=== PATIENT | female | born 1935 | race Caucasian/White ===

== ENCOUNTER 2018-01-26 14:30 | Inpatient (IN) ==
[2018-01-26] MEDS ORDERED: methylPREDNISolone SOD SUC 125 MG/2 ML VIAL IV STA (15:02)
[2018-01-26 15:35] LABS: Basophils % 0.3 % (0.0-0.8); Eosinophils # 0.1 10*3/uL (0.0-0.87); Eosinophils % 0.9 % (0.00-10.9); Hematocrit 40.5 VOL% (35.7-47.0); Hemoglobin 13.4 GM/DL (12.0-16.0); Immature Granulocytes % 0.4 %; Immature Granulocytes Absolute 0.04 #; Lymphocytes % 9.9 % (21.3-54.2); Mean Corpuscular HGB Conc 33.1 GM/DL (32-36); Mean Corpuscular Hemoglobin 31 PG (27-34); Mean Corpuscular Volume 94.6 FL (87-102); Mean Platelet Volume 9.6 FL (9.6-12.0); Monocytes # 0.9 10*3/uL (0.11-0.8); Monocytes % 9.3 % (1.7-12.7); Neutrophils # 7.9 10*3/uL (1.4-7.4); Neutrophils % 79.2 % (38.7-73.9); Platelet Count 286 T/CUMM (130-400); Red Blood Count 4.28 MC/CUMM (3.8-5.5); Red Cell Distribution Width 13.2 % (9.3-17.3)
[2018-01-26 15:49] LABS: Alanine Aminotransferase 44 U/L (13-56); Albumin 2.4 G/DL (3.4-5.0); Alkaline Phosphatase 172 U/L (45-117); Aspartate Amino Transferase 39 U/L (0-37); Bilirubin,Total < 0.39 MG/DL (0.2-1.0); Blood Urea Nitrogen 25 MG/DL (7-18); Calcium 8.9 MG/DL (8.5-10.1); Glucose 266 MG/DL (74-106); Osmolality,Calculated 293.3 MOS/KG (273-304); Potassium 3.9 MMOL/L (3.5-5.1); Sodium 141 MMOL/L (136-145); Total Protein 5.8 G/DL (6.4-8.3); Troponin I Only < 0.015 NG/ML (0.00-0.045)
[2018-01-26 15:51] LABS: INR 0.9; PT Patient Result 9.9 SECS; Partial Thromboplastin Time 27.6 SECS (0-40)
[2018-01-26] MEDS ORDERED: ACETAMINOPHEN 325 MG TABLET PO PRN (17:21)
[2018-01-26] MEDS ORDERED: ONDANSETRON 4 MG/2 ML VIAL IV PRN (17:21)
[2018-01-26] MEDS ORDERED: NIFEdipine 10 MG CAPSULE PO PRN (17:34)
[2018-01-26] MEDS: methylPREDNISolone SOD SUC 125 MG/2 ML VIAL IV SCH (18:00)
[2018-01-26] MEDS: MEROPENEM 1,000 MG in SODIUM CHLORIDE 0.9% 100 ML IV SCH (18:20)
[2018-01-26] MEDS: ALBUTEROL/IPRATROPIUM 3 ML NEB RESP TX SCH ×2 (19:02→23:11)
[2018-01-26] MEDS: CIPROFLOXACIN 500 MG TABLET PO SCH (20:27)
[2018-01-26] MEDS: ZALEPLON 5 MG CAPSULE PO SCH (20:27)
[2018-01-26 20:41] LABS: Apearance,Urine CLOUDY (Clear); Bilirubin,Urine Negative (Negative); Blood, Urine Large mg/dL (Negative); Glucose,Urine (UA) 50 mg/dL (Negative); Ketones,Urine Negative (Negative); Mucus,Urine Occasional /LPF (Occasional); Nitrite,Urine Negative (Negative); Protein,Urine 100 MG/DL; RBC,Urine 3157 /HPF (0-4); Renal Epithelial Cells,Urine Occasional /HPF (<1); Squamous Epithelial Cell,Urine Occasional /HPF (0-10); Urine Color Amber (Yellow); WBC,Urine 69 /HPF (0-6)
[2018-01-27] MEDS: methylPREDNISolone SOD SUC 125 MG/2 ML VIAL IV SCH ×3 (01:00→17:15)
[2018-01-27] MEDS: ALBUTEROL/IPRATROPIUM 3 ML NEB RESP TX SCH ×6 (02:00→23:43)
[2018-01-27] MEDS: MEROPENEM 1,000 MG in SODIUM CHLORIDE 0.9% 100 ML IV SCH ×2 (05:30→17:18)
[2018-01-27 05:31] LABS: Basophils % 0.1 % (0.0-0.8); Hematocrit 35.9 VOL% (35.7-47.0); Immature Granulocytes % 0.6 %; Immature Granulocytes Absolute 0.05 #; Lymphocytes # 0.3 10*3/uL (1.4-4.0); Lymphocytes % 3.6 % (21.3-54.2); Mean Corpuscular HGB Conc 33.4 GM/DL (32-36); Mean Corpuscular Hemoglobin 31 PG (27-34); Mean Platelet Volume 9.5 FL (9.6-12.0); Monocytes # 0.1 10*3/uL (0.11-0.8); Monocytes % 1.2 % (1.7-12.7); Neutrophils # 8.1 10*3/uL (1.4-7.4); Neutrophils % 94.5 % (38.7-73.9); Platelet Count 263 T/CUMM (130-400); Red Blood Count 3.86 MC/CUMM (3.8-5.5); White Blood Count 8.6 T/CUMM (4-12)
[2018-01-27 05:47] LABS: Calcium 8.4 MG/DL (8.5-10.1); Osmolality,Calculated 294.8 MOS/KG (273-304); Risk Ratio 2.08
[2018-01-27 06:04] LABS: Band Neutrophils 1 % (0-10); Hypochromasia 1+; Lymphocytes 2 % (20-55); Platelet Estimate Adequate; Segmented Neutrophils 96 % (50-85); Total Cells Counted 100
[2018-01-27] MEDS ORDERED: UMECLIDINIUM BRM PO SCH (09:00)
[2018-01-27] MEDS ORDERED: VILANTEROL TR PO SCH (09:00)
[2018-01-27] MEDS: ASPIRIN EC 81 MG TABLET PO SCH (09:43)
[2018-01-27] MEDS: hydroCHLOROthiazide 25 MG TABLET PO SCH (09:43)
[2018-01-27] MEDS: DILTIAZEM CD 120 MG CAPSULE PO SCH (09:43)
[2018-01-27] MEDS: DULoxetine 30 MG CAPSULE PO SCH (09:44)
[2018-01-27] MEDS: CIPROFLOXACIN 500 MG TABLET PO SCH ×2 (09:44→20:46)
[2018-01-27] MEDS: amLODIPine 5 MG TABLET PO SCH (09:44)
[2018-01-27] MEDS: PANTOPRAZOLE 40 MG TABLET PO SCH (09:44)
[2018-01-27] MEDS: ATORVASTATIN 80 MG TABLET PO SCH (09:44)
[2018-01-27] MEDS: SOTALOL 80 MG TABLET PO SCH ×2 (10:39→20:46)
[2018-01-27] MEDS: ZALEPLON 5 MG CAPSULE PO SCH (20:46)
[2018-01-28] MEDS: methylPREDNISolone SOD SUC 125 MG/2 ML VIAL IV SCH (01:22)
[2018-01-28] MEDS: ALBUTEROL/IPRATROPIUM 3 ML NEB RESP TX SCH ×6 (03:22→23:45)
[2018-01-28] MEDS: MEROPENEM 1,000 MG in SODIUM CHLORIDE 0.9% 100 ML IV SCH ×2 (05:16→18:22)
[2018-01-28 06:01] LABS: Basophils % 0.1 % (0.0-0.8); Hematocrit 34.4 VOL% (35.7-47.0); Hemoglobin 11.6 GM/DL (12.0-16.0); Immature Granulocytes % 1.2 %; Immature Granulocytes Absolute 0.26 #; Lymphocytes # 0.7 10*3/uL (1.4-4.0); Lymphocytes % 3.3 % (21.3-54.2); Mean Corpuscular HGB Conc 33.7 GM/DL (32-36); Mean Corpuscular Hemoglobin 31 PG (27-34); Mean Corpuscular Volume 91.2 FL (87-102); Mean Platelet Volume 9.4 FL (9.6-12.0); Monocytes # 0.5 10*3/uL (0.11-0.8); Monocytes % 2.2 % (1.7-12.7); Neutrophils # 20.2 10*3/uL (1.4-7.4); Neutrophils % 93.2 % (38.7-73.9); Platelet Count 294 T/CUMM (130-400); Red Blood Count 3.77 MC/CUMM (3.8-5.5); Red Cell Distribution Width 12.8 % (9.3-17.3); White Blood Count 21.7 T/CUMM (4-12)
[2018-01-28 06:22] LABS: Calcium 8.7 MG/DL (8.5-10.1); Osmolality,Calculated 287.3 MOS/KG (273-304)
[2018-01-28 06:30] LABS: Anisocytosis Slight; Microcytosis Slight; Platelet Estimate Normal
[2018-01-28 06:31] LABS: Hypochromasia Slight
[2018-01-28 06:45] LABS: Lymphocytes 5 % (20-55); Segmented Neutrophils 93 % (50-85)
[2018-01-28 08:00] LABS: Total Cells Counted 100
[2018-01-28] MEDS: SOTALOL 80 MG TABLET PO SCH ×2 (10:13→21:00)
[2018-01-28] MEDS: hydroCHLOROthiazide 25 MG TABLET PO SCH (10:14)
[2018-01-28] MEDS: ATORVASTATIN 80 MG TABLET PO SCH (10:15)
[2018-01-28] MEDS: PANTOPRAZOLE 40 MG TABLET PO SCH (10:15)
[2018-01-28] MEDS: DILTIAZEM CD 120 MG CAPSULE PO SCH (10:15)
[2018-01-28] MEDS: CIPROFLOXACIN 500 MG TABLET PO SCH ×2 (10:15→21:00)
[2018-01-28] MEDS: DULoxetine 30 MG CAPSULE PO SCH (10:15)
[2018-01-28] MEDS: amLODIPine 5 MG TABLET PO SCH (10:16)
[2018-01-28] MEDS: methylPREDNISolone SOD SUC 40 MG/1 ML VIAL IV SCH ×2 (10:18→21:01)
[2018-01-28 14:34] LABS: AFP Tumor 2.8 NG/ML (0-8); Carcinoembryonic Antigen 5.6 NG/ML (0.0-5.0)
[2018-01-28 15:32] LABS: Cancer Antigen 19-9 794.9 U/ML (0-37)
[2018-01-28] MEDS: ZALEPLON 5 MG CAPSULE PO SCH (21:01)
[2018-01-29] MEDS: ALBUTEROL/IPRATROPIUM 3 ML NEB RESP TX SCH ×6 (03:50→22:59)
[2018-01-29] MEDS: MEROPENEM 1,000 MG in SODIUM CHLORIDE 0.9% 100 ML IV SCH ×3 (05:15→20:41)
[2018-01-29] MEDS: PANTOPRAZOLE 40 MG TABLET PO SCH (11:41)
[2018-01-29] MEDS: ATORVASTATIN 80 MG TABLET PO SCH (11:41)
[2018-01-29] MEDS: DILTIAZEM CD 120 MG CAPSULE PO SCH (11:41)
[2018-01-29] MEDS: DULoxetine 30 MG CAPSULE PO SCH (11:44)
[2018-01-29] MEDS: SOTALOL 80 MG TABLET PO SCH ×2 (11:44→20:42)
[2018-01-29] MEDS: CIPROFLOXACIN 500 MG TABLET PO SCH ×2 (11:44→20:42)
[2018-01-29] MEDS: amLODIPine 5 MG TABLET PO SCH (11:44)
[2018-01-29] MEDS: hydroCHLOROthiazide 25 MG TABLET PO SCH (11:44)
[2018-01-29] MEDS: methylPREDNISolone SOD SUC 40 MG/1 ML VIAL IV SCH ×2 (11:49→21:17)
[2018-01-29] MEDS: ZALEPLON 5 MG CAPSULE PO SCH (20:41)
[2018-01-29] MEDS ORDERED: MEROPENEM 1,000 MG in SODIUM CHLORIDE 0.9% 100 ML IV SCH (21:00)
[2018-01-30] MEDS: ALBUTEROL/IPRATROPIUM 3 ML NEB RESP TX SCH ×5 (03:18→19:36)
[2018-01-30 04:15] LABS: Hematocrit 39.5 VOL% (35.7-47.0); Hemoglobin 13.4 GM/DL (12.0-16.0); Immature Granulocytes Absolute 0.13 #; Lymphocytes # 0.5 10*3/uL (1.4-4.0); Mean Corpuscular HGB Conc 33.9 GM/DL (32-36); Mean Corpuscular Hemoglobin 31 PG (27-34); Mean Platelet Volume 8.9 FL (9.6-12.0); Monocytes # 0.5 10*3/uL (0.11-0.8); Monocytes % 3.7 % (1.7-12.7); Neutrophils # 11.8 10*3/uL (1.4-7.4); Neutrophils % 91.3 % (38.7-73.9); Platelet Count 332 T/CUMM (130-400); Red Blood Count 4.34 MC/CUMM (3.8-5.5); Red Cell Distribution Width 12.7 % (9.3-17.3); White Blood Count 12.9 T/CUMM (4-12)
[2018-01-30 04:29] LABS: Calcium 8.7 MG/DL (8.5-10.1); Osmolality,Calculated 285.4 MOS/KG (273-304)
[2018-01-30 05:10] LABS: Hypochromasia 1+; Lymphocytes 8 % (20-55); Platelet Estimate Adequate; Segmented Neutrophils 89 % (50-85); Total Cells Counted 100
[2018-01-30 05:11] LABS: Microcytosis Slight
[2018-01-30] MEDS: methylPREDNISolone SOD SUC 40 MG/1 ML VIAL IV SCH ×3 (08:49→21:37)
[2018-01-30] MEDS: MEROPENEM 1,000 MG in SODIUM CHLORIDE 0.9% 100 ML IV SCH ×2 (08:49→19:50)
[2018-01-30] MEDS: ASPIRIN EC 81 MG TABLET PO SCH (08:50)
[2018-01-30] MEDS: PANTOPRAZOLE 40 MG TABLET PO SCH (08:50)
[2018-01-30] MEDS: DILTIAZEM CD 120 MG CAPSULE PO SCH (08:50)
[2018-01-30] MEDS: SOTALOL 80 MG TABLET PO SCH ×2 (08:50→21:00)
[2018-01-30] MEDS: hydroCHLOROthiazide 25 MG TABLET PO SCH (08:50)
[2018-01-30] MEDS: CIPROFLOXACIN 500 MG TABLET PO SCH ×2 (08:51→21:02)
[2018-01-30] MEDS: amLODIPine 5 MG TABLET PO SCH (08:51)
[2018-01-30] MEDS: ATORVASTATIN 80 MG TABLET PO SCH (08:51)
[2018-01-30] MEDS: DULoxetine 30 MG CAPSULE PO SCH (08:51)
[2018-01-30] MEDS: ZALEPLON 5 MG CAPSULE PO SCH (21:02)
[2018-01-31] MEDS: ALBUTEROL/IPRATROPIUM 3 ML NEB RESP TX SCH ×6 (00:34→20:47)
[2018-01-31 06:23] LABS: Risk Ratio 2.18; VLDL CHOLESTEROL 11.2 MG/DL
[2018-01-31] MEDS: DILTIAZEM CD 120 MG CAPSULE PO SCH (09:26)
[2018-01-31] MEDS: hydroCHLOROthiazide 25 MG TABLET PO SCH (09:26)
[2018-01-31] MEDS: ATORVASTATIN 80 MG TABLET PO SCH (09:27)
[2018-01-31] MEDS: SOTALOL 80 MG TABLET PO SCH ×2 (09:27→20:25)
[2018-01-31] MEDS: ASPIRIN EC 81 MG TABLET PO SCH (09:27)
[2018-01-31] MEDS: MEROPENEM 1,000 MG in SODIUM CHLORIDE 0.9% 100 ML IV SCH ×2 (09:28→20:21)
[2018-01-31] MEDS: PANTOPRAZOLE 40 MG TABLET PO SCH (09:28)
[2018-01-31] MEDS: CIPROFLOXACIN 500 MG TABLET PO SCH ×2 (09:28→20:26)
[2018-01-31] MEDS: amLODIPine 5 MG TABLET PO SCH ×2 (09:28→20:26)
[2018-01-31] MEDS: DULoxetine 30 MG CAPSULE PO SCH (09:28)
[2018-01-31] MEDS: methylPREDNISolone SOD SUC 40 MG/1 ML VIAL IV SCH ×2 (09:30→22:22)
[2018-01-31] MEDS: SODIUM CHLORIDE 0.45% 1,000 ML IV SCH (09:48)
[2018-01-31] MEDS: ZALEPLON 5 MG CAPSULE PO SCH (20:25)
[2018-02-01] MEDS: ALBUTEROL/IPRATROPIUM 3 ML NEB RESP TX SCH ×5 (00:28→14:12)
[2018-02-01 04:14] LABS: Basophils % 0.1 % (0.0-0.8); Hematocrit 40.4 VOL% (35.7-47.0); Hemoglobin 13.4 GM/DL (12.0-16.0); Immature Granulocytes % 0.7 %; Immature Granulocytes Absolute 0.09 #; Lymphocytes # 0.6 10*3/uL (1.4-4.0); Lymphocytes % 4.5 % (21.3-54.2); Mean Corpuscular HGB Conc 33.2 GM/DL (32-36); Mean Corpuscular Hemoglobin 31 PG (27-34); Mean Corpuscular Volume 92.9 FL (87-102); Monocytes # 0.4 10*3/uL (0.11-0.8); Monocytes % 3.1 % (1.7-12.7); Neutrophils # 12.3 10*3/uL (1.4-7.4); Neutrophils % 91.6 % (38.7-73.9); Platelet Count 341 T/CUMM (130-400); Red Blood Count 4.35 MC/CUMM (3.8-5.5); Red Cell Distribution Width 12.5 % (9.3-17.3); White Blood Count 13.4 T/CUMM (4-12)
[2018-02-01 04:32] LABS: Albumin 2.5 G/DL (3.4-5.0); Bilirubin,Total 0.5 MG/DL (0.2-1.0); Calcium 7.9 MG/DL (8.5-10.1); Osmolality,Calculated 280.7 MOS/KG (273-304); Potassium 3.9 MMOL/L (3.5-5.1); Total Protein 5.3 G/DL (6.4-8.3)
[2018-02-01 04:36] LABS: Band Neutrophils 1 % (0-10); Lymphocytes 4 % (20-55); Platelet Estimate Normal; Segmented Neutrophils 93 % (50-85); Total Cells Counted 100
[2018-02-01] MEDS: SODIUM CHLORIDE 0.45% 1,000 ML IV SCH (06:47)
[2018-02-01] MEDS: methylPREDNISolone SOD SUC 40 MG/1 ML VIAL IV SCH (09:36)
[2018-02-01] MEDS: SOTALOL 80 MG TABLET PO SCH ×2 (09:48→18:46)
[2018-02-01] MEDS: hydroCHLOROthiazide 25 MG TABLET PO SCH (09:49)
[2018-02-01] MEDS: ATORVASTATIN 80 MG TABLET PO SCH (09:49)
[2018-02-01] MEDS: amLODIPine 5 MG TABLET PO SCH (09:49)
[2018-02-01] MEDS: CIPROFLOXACIN 500 MG TABLET PO SCH (09:49)
[2018-02-01] MEDS: DULoxetine 30 MG CAPSULE PO SCH (09:50)
[2018-02-01] MEDS: PANTOPRAZOLE 40 MG TABLET PO SCH (09:50)
[2018-02-01] MEDS: ASPIRIN EC 81 MG TABLET PO SCH (09:50)
[2018-02-01] MEDS: DILTIAZEM CD 120 MG CAPSULE PO SCH (09:50)
[2018-02-01] MEDS: MEROPENEM 1,000 MG in SODIUM CHLORIDE 0.9% 100 ML IV SCH (09:53)
[2018-02-01 16:22] VITALS: BP 120/64
== END 2018-02-01 18:45 | disposition hospice, home (50) | DRG 190 ==
LOC: N.ED 14:30 → SUATTDRO 16:51 → N.EDINP 16:51 → N.4E 17:42
PROVIDERS: ADMIT Internal Medicine; ATTEND Internal Medicine